=== PATIENT | male | born 1930 | race Caucasian/White ===

== ENCOUNTER 2016-03-23 05:51 | Observation (INO) | END 2016-03-23 19:15 | disposition home or self-care (01) | CPT/HCPCS: 36415; 80048; 80053; 83690; 83735; 84484; 85025; 87275; 87276; 93005; 93010; 96360; 96361; 99283; 99284; A9270; G0378 ==

== ENCOUNTER 2016-10-16 07:12 | Outpatient (CLI) | payer MEDICARE, OTHER ==
[2016-10-16 11:57] LABS: BASOPHILS # (AUTO) 0.1 10^3/uL (0.0-0.1); EOSINOPHILS # (AUTO) 0.5 10^3/uL (0.0-0.7); HCT - HEMATOCRIT 39.8 % (42.0-52.0); HGB - HEMOGLOBIN 13.6 g/dL (14.0-18.0); LYMPHOCYTES # (AUTO) 1.3 10^3/uL (1.5-3.5); LYMPHOCYTES % (AUTO) 25.7 %; MEAN CORPUSCULAR HEMOGLOBIN 31.1 pg (27.0-31.0); MEAN CORPUSCULAR HGB CONC 34.3 g/dL (32.0-36.0); MEAN CORPUSCULAR VOLUME 90.9 fL (80.0-94.0); MONOCYTES # (AUTO) 0.6 10^3/uL (0.0-1.0); MONOCYTES % (AUTO) 12.3 %; NEUTROPHILS # (AUTO) 2.5 10^3/uL (1.5-6.6); NUCLEATED RED BLOOD CELLS AUTO 0.1 /100WBC; RED BLOOD COUNT 4.38 10^6/uL (4.70-6.10); RED CELL DISTRIBUTION WIDTH 13.3 % (12.0-15.0); UNCORRECTED WHITE BLOOD COUNT 4.9 x10^3/uL; WHITE BLOOD COUNT 4.9 x10^3/uL (4.8-10.8)
[2016-10-16 12:19] LABS: ALBUMIN/GLOBULIN RATIO 1.2 (1.0-2.2); BILIRUBIN,TOTAL 0.5 mg/dL (0.2-1.0); BUN - BLOOD UREA NITROGEN 26 mg/dL (6-20); CALCIUM 9.3 mg/dL (8.5-10.3); CARBON DIOXIDE - CO2 25 mmol/L (21-32); CHLORIDE 104 mmol/L (101-111); CHOLESTEROL 187 mg/dL; GFR - MDRD 71 (>89); GLUCOSE 113 mg/dL (70-100); HDL CHOLESTEROL 63 mg/dL; LDL/HDL RATIO 1.6 (<3.6); POTASSIUM 3.6 mmol/L (3.5-5.0); SODIUM 138 mmol/L (135-145); TOTAL PROTEIN 7.7 g/dL (6.7-8.2); TRIGLYCERIDES 112 mg/dL; VLDL CHOLESTEROL 22 mg/dL
== END 2016-10-16 07:13 | disposition home or self-care (01) ==
LOC: LAB.F 07:12
PROVIDERS: ATTEND Nurse Practitioner Family
DX: I10 Essential (primary) hypertension (principal)
CPT/HCPCS: 36415; 80053; 80061; 85025

== ENCOUNTER 2017-01-12 07:08 | Outpatient (CLI) | payer MEDICARE, OTHER ==
[2017-01-12 14:53] LABS: CHOLESTEROL 513 mg/dL
[2017-01-12 14:54] LABS: CARBON DIOXIDE - CO2 24 mmol/L (21-32); CHLORIDE 104 mmol/L (101-111); POTASSIUM 3.6 mmol/L (3.5-5.0); SODIUM 142 mmol/L (135-145)
[2017-01-12 14:55] LABS: BILIRUBIN,TOTAL 0.7 mg/dL (0.2-1.0); BUN - BLOOD UREA NITROGEN 19 mg/dL (6-20); CALCIUM 8.8 mg/dL (8.5-10.3); GFR - MDRD 71 (>89); GLUCOSE 97 mg/dL (70-100)
[2017-01-12 14:56] LABS: TOTAL PROTEIN 6.8 g/dL (6.7-8.2)
[2017-01-12 14:57] LABS: ALBUMIN/GLOBULIN RATIO 1.3 (1.0-2.2); TRIGLYCERIDES > 2000 mg/dL
== END 2017-01-12 07:09 | disposition home or self-care (01) ==
LOC: LAB.F 07:08
PROVIDERS: ATTEND Nurse Practitioner Family
DX: E78.00 Pure hypercholesterolemia, unspecified (principal)
CPT/HCPCS: 36415; 80053; 80061

== ENCOUNTER 2017-02-24 07:17 | Outpatient (CLI) | payer MEDICARE, OTHER ==
[2017-02-24 11:23] LABS: ALBUMIN/GLOBULIN RATIO 1.2 (1.0-2.2); BILIRUBIN,TOTAL 0.6 mg/dL (0.2-1.0); BUN - BLOOD UREA NITROGEN 22 mg/dL (6-20); CALCIUM 9.3 mg/dL (8.5-10.3); CARBON DIOXIDE - CO2 27 mmol/L (21-32); CHLORIDE 105 mmol/L (101-111); CHOL/HDL RATIO 4.4 (<5.0); CHOLESTEROL 237 mg/dL; CREATININE 0.9 mg/dL (0.6-1.2); GFR - MDRD 80 (>89); GLUCOSE 107 mg/dL (70-100); HDL CHOLESTEROL 54 mg/dL; LDL/HDL RATIO 2.2 (<3.6); POTASSIUM 3.7 mmol/L (3.5-5.0); SODIUM 141 mmol/L (135-145); TOTAL PROTEIN 7.7 g/dL (6.7-8.2); TRIGLYCERIDES 324 mg/dL; VLDL CHOLESTEROL 65 mg/dL
== END 2017-02-24 07:18 | disposition home or self-care (01) ==
LOC: LAB.F 07:17
PROVIDERS: ATTEND Nurse Practitioner Family
DX: E78.1 Pure hyperglyceridemia (principal)
CPT/HCPCS: 36415; 80053; 80061

== ENCOUNTER 2017-08-14 07:16 | Outpatient (CLI) | payer MEDICARE, OTHER ==
[2017-08-14 12:33] LABS: ALBUMIN 4.2 g/dL (3.2-5.5); ALBUMIN/GLOBULIN RATIO 1.2 (1.0-2.2); ALKALINE PHOSPHATASE 52 IU/L (42-121); ALT ALANINE AMINOTRANSFERASE 20 IU/L (10-60); AST ASPARTATE AMINOTRANSFERASE 22 IU/L (10-42); BILIRUBIN,TOTAL 0.9 mg/dL (0.2-1.0); BUN - BLOOD UREA NITROGEN 25 mg/dL (6-20); CARBON DIOXIDE - CO2 26 mmol/L (21-32); CHLORIDE 104 mmol/L (101-111); CHOL/HDL RATIO 3.2 (<5.0); CHOLESTEROL 185 mg/dL; CREATININE 0.8 mg/dL (0.6-1.2); GFR - MDRD 92 (>89); GLUCOSE 98 mg/dL (70-100); HDL CHOLESTEROL 57 mg/dL; LDL CHOLESTEROL,CALCULATED 99 mg/dL; LDL/HDL RATIO 1.7 (<3.6); SODIUM 138 mmol/L (135-145); TOTAL PROTEIN 7.6 g/dL (6.7-8.2); VLDL CHOLESTEROL 29 mg/dL
== END 2017-08-14 07:17 | disposition home or self-care (01) ==
LOC: LAB.F 07:16
PROVIDERS: ATTEND Nurse Practitioner Family
DX: E78.1 Pure hyperglyceridemia (principal)
CPT/HCPCS: 36415; 80053; 80061; 83721

== ENCOUNTER 2018-04-12 07:13 | Outpatient (CLI) | payer MEDICARE, OTHER ==
[2018-04-12 13:21] LABS: ALBUMIN 4.2 g/dL (3.2-5.5); ALBUMIN/GLOBULIN RATIO 1.1 (1.0-2.2); ALKALINE PHOSPHATASE 56 IU/L (42-121); ALT ALANINE AMINOTRANSFERASE 28 IU/L (10-60); AST ASPARTATE AMINOTRANSFERASE 24 IU/L (10-42); BILIRUBIN,TOTAL 0.9 mg/dL (0.2-1.0); BUN - BLOOD UREA NITROGEN 27 mg/dL (6-20); CALCIUM 9.2 mg/dL (8.5-10.3); CARBON DIOXIDE - CO2 23 mmol/L (21-32); CHLORIDE 104 mmol/L (101-111); CHOL/HDL RATIO 3.7 (<5.0); CHOLESTEROL 190 mg/dL; CREATININE 0.9 mg/dL (0.6-1.2); GFR - MDRD 80 (>89); GLUCOSE 101 mg/dL (70-100); HDL CHOLESTEROL 52 mg/dL; LDL CHOLESTEROL,CALCULATED 103 mg/dL; SODIUM 139 mmol/L (135-145); TOTAL PROTEIN 8.1 g/dL (6.7-8.2); VLDL CHOLESTEROL 35 mg/dL
== END 2018-04-12 07:14 | disposition home or self-care (01) ==
LOC: LAB.F 07:13
PROVIDERS: ATTEND Nurse Practitioner Family
DX: I10 Essential (primary) hypertension (principal); E78.1 Pure hyperglyceridemia
CPT/HCPCS: 36415; 80053; 80061; 83721; 84443

== ENCOUNTER 2018-11-23 11:40 | Outpatient (CLI) | payer MEDICARE, OTHER ==
[2018-11-23 12:23] LABS: ALBUMIN 4.1 g/dL (3.2-5.5); CALCIUM 8.9 mg/dL (8.5-10.3); CREATININE 0.8 mg/dL (0.6-1.2); PHOSPHORUS 3.5 mg/dL (2.5-4.6)
== END 2018-11-23 11:41 | disposition home or self-care (01) ==
LOC: LAB 11:40
PROVIDERS: ATTEND Internal Medicine Cardiovascular Disease
DX: R06.09 Other forms of dyspnea (principal)
CPT/HCPCS: 36415; 80069

== ENCOUNTER 2019-05-04 07:14 | Outpatient (CLI) | payer MEDICARE, OTHER ==
[2019-05-04 12:20] LABS: BUN - BLOOD UREA NITROGEN 19 mg/dL (6-20); CARBON DIOXIDE - CO2 24 mmol/L (21-32); CHLORIDE 105 mmol/L (101-111); CHOL/HDL RATIO 3.5 (<5.0); CHOLESTEROL 213 mg/dL; CREATININE 0.9 mg/dL (0.6-1.2); GFR - MDRD 80 (>89); GLUCOSE 105 mg/dL (70-100); HDL CHOLESTEROL 61 mg/dL; LDL CHOLESTEROL,CALCULATED 92 mg/dL; LDL/HDL RATIO 1.5 (<3.6); SODIUM 139 mmol/L (135-145); VLDL CHOLESTEROL 60 mg/dL
== END 2019-05-04 07:15 | disposition home or self-care (01) ==
LOC: LAB.S 07:14
PROVIDERS: ATTEND Internal Medicine
DX: I10 Essential (primary) hypertension (principal); E78.5 Hyperlipidemia, unspecified
CPT/HCPCS: 36415; 80048; 80061; 83721

== ENCOUNTER 2020-01-26 16:46 | Outpatient (CLI) | payer MEDICARE, OTHER | END 2020-01-26 16:47 | disposition home or self-care (01) | LOC: COV 16:46 | PROVIDERS: ATTEND Family Medicine | DX: J02.9 Acute pharyngitis, unspecified (principal); Z20.828 Contact with and (suspected) exposure to other viral communicable diseases ==

== ENCOUNTER 2020-04-12 07:38 | Outpatient (CLI) | payer MEDICARE, OTHER ==
[2020-04-12 15:04] LABS: BASOPHILS % (AUTO) 0.6 %; EOSINOPHILS # (AUTO) 0.5 10^3/uL (0.0-0.7); EOSINOPHILS % (AUTO) 8.6 %; HGB - HEMOGLOBIN 13.3 g/dL (14.0-18.0); LYMPHOCYTES # (AUTO) 1.5 10^3/uL (1.5-3.5); MEAN CORPUSCULAR HEMOGLOBIN 30.7 pg (27.0-31.0); MEAN CORPUSCULAR HGB CONC 32.8 g/dL (32.0-36.0); MEAN CORPUSCULAR VOLUME 93.8 fL (80.0-94.0); MONOCYTES # (AUTO) 0.7 10^3/uL (0.0-1.0); MONOCYTES % (AUTO) 12.3 %; NEUTROPHILS # (AUTO) 2.7 10^3/uL (1.5-6.6); NEUTROPHILS % (AUTO) 50.1 %; PLT - PLATELET COUNT 194 10^3/uL (130-450); RED BLOOD COUNT 4.33 10^6/uL (4.70-6.10); RED CELL DISTRIBUTION WIDTH 12.3 % (12.0-15.0); WHITE BLOOD COUNT 5.4 x10^3/uL (4.8-10.8)
[2020-04-12 15:53] LABS: ALBUMIN/GLOBULIN RATIO 1.1 (1.0-2.2); ALKALINE PHOSPHATASE 66 IU/L (42-121); ALT ALANINE AMINOTRANSFERASE 17 IU/L (10-60); AST ASPARTATE AMINOTRANSFERASE 18 IU/L (10-42); BILIRUBIN,TOTAL 0.6 mg/dL (0.2-1.0); BUN - BLOOD UREA NITROGEN 21 mg/dL (6-20); CALCIUM 9.4 mg/dL (8.5-10.3); CARBON DIOXIDE - CO2 25 mmol/L (21-32); CHLORIDE 101 mmol/L (101-111); CHOL/HDL RATIO 3.1 (<5.0); CHOLESTEROL 187 mg/dL; CREATININE 0.9 mg/dL (0.6-1.2); GLUCOSE 104 mg/dL (70-100); HDL CHOLESTEROL 61 mg/dL; LDL CHOLESTEROL,CALCULATED 90 mg/dL; LDL/HDL RATIO 1.5 (<3.6); TOTAL PROTEIN 7.8 g/dL (6.7-8.2); VLDL CHOLESTEROL 36 mg/dL
== END 2020-04-12 07:39 | disposition home or self-care (01) ==
LOC: LAB.S 07:38
PROVIDERS: ATTEND Registered Nurse
DX: E78.5 Hyperlipidemia, unspecified (principal); N40.1 Benign prostatic hyperplasia with lower urinary tract symptoms; N13.8 Other obstructive and reflux uropathy; I10 Essential (primary) hypertension
CPT/HCPCS: 36415; 80053; 80061; 83721; 84443; 85025

== ENCOUNTER 2020-05-17 19:32 | Outpatient (CLI) | payer MEDICARE, OTHER | END 2020-05-17 19:33 | disposition home or self-care (01) | LOC: COV 19:32 | PROVIDERS: ATTEND Family Medicine | DX: R05 Cough (principal); Z20.822 Contact with and (suspected) exposure to COVID-19 ==

== ENCOUNTER 2020-05-31 08:00 | Outpatient (CLI) | payer MEDICARE, OTHER ==
--- NOTE | 2020-05-31 14:08 | XRAY Report ---
PROCEDURE: Chest 2 View X-Ray INDICATIONS: COUGH TECHNIQUE: 2 view(s) of the chest. COMPARISON: None. FINDINGS: Surgical changes and devices: Left shoulder arthroplasty. Lungs and pleura: No pleural effusions or pneumothorax. Moderate diffuse reticulonodular pulmonary o pacity is present. Mediastinum: Mediastinal contours are normal. Heart size is normal. Bones and chest wall: No suspicious bony abnormalities. Soft tissues appear unremarkable. IMPRESSION: Moderate atypical pneumonia. Reviewed by: Karen Núñez MD on 05/31/2020 2:06 PM PST Approved by: Karen Núñez MD on 05/31/2020 2:06 PM PST Station ID: [id number]
== END 2020-05-31 23:59 | disposition home or self-care (01) ==
LOC: DI.S 08:00
PROVIDERS: ATTEND Physician Assistant
DX: R05 Cough (principal); J18.9 Pneumonia, unspecified organism

== ENCOUNTER 2020-06-16 15:19 | Outpatient (CLI) | payer MEDICARE, OTHER ==
--- NOTE | 2020-06-16 16:09 | XRAY Report ---
PROCEDURE: Chest 2 View X-Ray INDICATIONS: COUGH TECHNIQUE: 2 view(s) of the chest. COMPARISON: Chest x-ray 05/31/2020 FINDINGS: Surgical changes and devices: Left shoulder arthroplasty. Lungs and pleura: No pleural effusions or pneumothorax. Previous appearance of diffuse reticular-nod ular opacities remain present relatively unchanged. No consolidations. Mediastinum: Mediastinal contours are normal. Heart size is normal. Bones and chest wall: No suspicious bony abnormalities. Soft tissues appear unremarkable. IMPRESSION: Persistent appearance of bilateral reticular nodular opacities suggestive of atypical pn eumonia. Overall, no significant interval change. Reviewed by: Mahsa Stevenson MD on 06/16/2020 4:08 PM PDT Approved by: Mahsa Stevenson MD on 06/16/2020 4:08 PM PDT Station ID: [id number]
== END 2020-06-16 23:59 | disposition home or self-care (01) ==
LOC: DI.S 15:19
PROVIDERS: ATTEND Physician Assistant
DX: J18.9 Pneumonia, unspecified organism (principal); R05 Cough

== ENCOUNTER 2020-06-20 14:46 | Emergency (ER) | payer MEDICARE, OTHER ==
--- NOTE | 2020-06-20 15:48 | ED Physician Documentation ---
PD HPI DYSPNEA - Stated complaint Stated Complaint: SOA, COUGH, ALLERGY TO MEDS - Chief complaint Chief Complaint: Resp - History obtained from History obtained from: Patient - Additional information Additional information: This 89-year-old gentleman has been dealing with "atypical pneumonia for the last 5 weeks. He has a persistent cough, shortness of breath with exertion but not at rest. He is using his 's oxygen which makes him feel better and says at some point he had a room air sat of 90%. He is been seen several times at the walk-in clinic and 2 x-rays were done showing atypical pneumonia. He is been on multiple antibiotics including azithromycin, doxycycline, and most like most recently moxifloxacin. He took 4 days of moxifloxacin but stopped last night because he had a very short syncopal episode without injury. Review of Systems Ten Systems: 10 systems reviewed and negative Constitutional: denies: Fever, Chills Cardiac: denies: Chest pain / pressure, Palpitations Respiratory: reports: Dyspnea, Cough PD PAST MEDICAL HISTORY - Past Medical History Past Medical History: Yes Cardiovascular: Hypertension, High cholesterol, Coronary artery disease Respiratory: None Neuro: None Endocrine/Autoimmune: None GI: None : Benign prostate hypertrophy HEENT: None Psych: None Musculoskeletal: None Derm: None - Past Surgical History Past Surgical History: Yes General: Colonoscopy Derm: Skin cancer surgery, Other - Present Medications Home Medications: Ambulatory Orders Medication Instructions Recorded Confirmed Cholestyramine/Aspartame 4 gm PO DAILY 01/25/13 03/23/16 [Prevalite Packet] Doxazosin [Cardura] 8 mg PO DAILY 01/25/13 03/23/16 Finasteride [Proscar] 5 mg PO DAILY 01/25/13 03/23/16 Hydrochlorothiazide 25 mg PO DAILY 01/25/13 03/23/16 gemfibroziL [Gemfibrozil] 600 mg PO BIDWM 01/25/13 03/23/16 Aspirin [Aspirin EC] 81 mg PO DAILY 03/23/16 03/23/16 Cholestyramine/Aspartame 8 gm PO QPM 03/23/16 03/23/16 [Prevalite Packet] Metoprolol Succinate [Toprol Xl] 100 mg PO DAILY 03/23/16 03/23/16 Niacin [Niacin ER] 500 mg PO BID 03/23/16 03/23/16 Amoxicillin 2 tab PO TID #60 cap 06/20/20 - Allergies Allergies/Adverse Reactions: Allergies Allergy/AdvReac Type Severity Reaction Status Date / Time ALMA Inhibitors Allergy Severe angioedema Verified 03/23/16 05:58 azithromycin Allergy Dizziness Verified 06/20/20 14:59 shellfish derived Allergy Anaphylaxis Verified 03/23/16 05:59 - Social History Does the pt smoke?: No Smoking Status: Never smoker Does the pt drink ETOH?: Yes Does the pt have substance abuse?: No - Immunizations Immunizations are current?: Yes - POLST Patient has POLST: No PD ED PE NORMAL - Vitals Vital signs reviewed: Yes - General General: Alert and oriented X 3, No acute distress - HEENT HEENT: PERRL, EOMI - Neck Neck: Supple, no meningeal sign, No bony TTP - Cardiac Cardiac: RRR, No murmur - Respiratory Respiratory: No respiratory distress, Clear bilaterally - Abdomen Abdomen: Normal bowel sounds, Soft, Non tender - Back Back: No CVA TTP, No spinal TTP - Derm Derm: Normal color, Warm and dry - Extremities Extremities: No edema, No calf tenderness / cord - Neuro Neuro: Alert and oriented X 3, Normal speech Results - Vitals Vitals: Vital Signs - 24 hr 06/20/20 06/20/20 06/20/20 14:59 15:07 17:07 Temperature 36.6 C 36.4 C L Heart Rate 96 76 74 Respiratory 24 16 16 Rate Blood Pressure 126/65 129/63 130/59 L O2 Saturation 93 92 94 Oxygen O2 Source Room air - Labs Labs: Laboratory Tests 06/20/20 06/20/20 06/20/20 16:00 16:00 16:12 WBC 16.8 H RBC 4.13 L Hgb 12.3 L Hct 36.5 L MCV 88.4 MCH 29.8 MCHC 33.7 RDW 12.0 Plt Count 314 MPV 10.5 Neut # (Auto) 14.1 H Lymph # (Auto) 1.0 L Tyrrell # (Auto) 1.4 H Eos # (Auto) 0.2 Baso # (Auto) 0.1 Absolute Nucleated RBC 0.00 Nucleated RBC % 0.0 Sodium 130 L Potassium 3.4 L Chloride 92 L Carbon Dioxide 25 Anion Gap 13.0 BUN 27 H Creatinine 1.0 Estimated GFR (MDRD) 71 L Glucose 121 H Calcium 9.3 Total Bilirubin 0.2 AST 26 ALT 46 Alkaline Phosphatase 72 Total Protein 7.6 Albumin 2.5 L Globulin 5.1 H Albumin/Globulin Ratio 0.5 L Nasal Adenovirus (PCR) NOT DETECTED Nasal B. parapertussis DNA (PCR) NOT DETECTED Nasal Coronavir 229E PCR NOT DETECTED Nasal Coronavir HKU1 PCR NOT DETECTED Nasal Coronavir NL63 PCR NOT DETECTED Nasal Coronavir OC43 PCR NOT DETECTED Nasal Enterovir/Rhinovir PCR NOT DETECTED Nasal Influenza B PCR NOT DETECTED Nasal Influenza A PCR NOT DETECTED Nasal Parainfluen 1 PCR NOT DETECTED Nasal Parainfluen 2 PCR NOT DETECTED Nasal Parainfluen 3 PCR NOT DETECTED Nasal Parainfluen 4 PCR NOT DETECTED Nasal RSV (PCR) NOT DETECTED Nasal B.pertussis DNA PCR NOT DETECTED Nasal C.pneumoniae (PCR) NOT DETECTED Ahmet Human Metapneumo PCR NOT DETECTED Nasal M.pneumoniae (PCR) NOT DETECTED Nasal SARS-CoV-2 (PCR) NOT DETECTED PD MEDICAL DECISION MAKING - ED course ED course: 89-year-old gentleman with persistent cough and shortness of breath for 5 weeks despite being on 3 antibiotics suggestive of a viral process. CT done today also ask is consistent with viral process. My suspicion is he probably had Covid and now has persistent infiltrates despite a negative test. That said he does have a leukocytosis and as such given his advanced age probably needs persistent antibiotics. He has an appoint with a [employer] ticket seller and he is given a copy of the CAT scan on a CD to aid in follow-up. Departure - Departure Disposition: 01 Home, Self Care Clinical Impression: Pneumonia Qualifiers: Pneumonia type: due to unspecified organism Laterality: bilateral Lung location: unspecified part of lung Qualified Code(s): J18.9 - Pneumonia, unspecified organism Condition: Good Record reviewed to determine appropriate education?: Yes Instructions: Pneumonia Dc Prescriptions: Amoxicillin 2 tab PO TID #60 cap Comments: The CAT scan today suggests a viral process, my suspicion is you probably had Covid and the infiltrates are persistent despite a negative test. That said your blood work is more suggestive of a bacterial infection and as such we are doing a new round of antibiotics. Make sure to keep the appointment for the [employer] seller that is scheduled and return if worse. Take the copy of the CAT scan on CD with you to that appointment.
[2020-06-20 16:06] LABS: BASOPHILS # (AUTO) 0.1 10^3/uL (0.0-0.1); BASOPHILS % (AUTO) 0.4 %; EOSINOPHILS # (AUTO) 0.2 10^3/uL (0.0-0.7); HCT - HEMATOCRIT 36.5 % (42.0-52.0); HGB - HEMOGLOBIN 12.3 g/dL (14.0-18.0); LYMPHOCYTES % (AUTO) 5.8 %; MEAN CORPUSCULAR HEMOGLOBIN 29.8 pg (27.0-31.0); MEAN CORPUSCULAR HGB CONC 33.7 g/dL (32.0-36.0); MEAN CORPUSCULAR VOLUME 88.4 fL (80.0-94.0); MEAN PLATELET VOLUME 10.5 fL (7.4-11.4); MONOCYTES # (AUTO) 1.4 10^3/uL (0.0-1.0); MONOCYTES % (AUTO) 8.3 %; NEUTROPHILS # (AUTO) 14.1 10^3/uL (1.5-6.6); PLT - PLATELET COUNT 314 10^3/uL (130-450); RED BLOOD COUNT 4.13 10^6/uL (4.70-6.10); WHITE BLOOD COUNT 16.8 x10^3/uL (4.8-10.8)
[2020-06-20 16:17] LABS: ALBUMIN 2.5 g/dL (3.2-5.5); ALBUMIN/GLOBULIN RATIO 0.5 (1.0-2.2); BILIRUBIN,TOTAL 0.2 mg/dL (0.2-1.0); CALCIUM 9.3 mg/dL (8.5-10.3); POTASSIUM 3.4 mmol/L (3.5-5.0); TOTAL PROTEIN 7.6 g/dL (6.7-8.2)
[2020-06-20] MEDS ORDERED: IOVERSOL 320 100 ML VIAL IVP ONE ×2 (16:33→21:16)
[2020-06-20 17:25] LABS: B. PARAPERTUSSIS- RESP PCR PAN NOT DETECTED; B. PERTUSSIS- RESP PCR PANEL NOT DETECTED; C. PNEUMONIAE- RESP PCR PANEL NOT DETECTED; CORONAVIRUS 229E-RESP PCR NOT DETECTED; CORONAVIRUS HKU1-RESP PCR NOT DETECTED; CORONAVIRUS NL63-RESP PCR NOT DETECTED; CORONAVIRUS OC43-RESP PCR NOT DETECTED; HUMAN METAPNEUMOVIRUS NOT DETECTED; INFLUENZA A- RESP PCR PANEL NOT DETECTED; INFLUENZA B - RESP PCR PANEL NOT DETECTED; M. PNEUMONIAE- RESP PCR PANEL NOT DETECTED; PARAINFLUENZA VIRUS 1 NOT DETECTED; PARAINFLUENZA VIRUS 2 NOT DETECTED; PARAINFLUENZA VIRUS 3 NOT DETECTED; PARAINFLUENZA VIRUS 4 NOT DETECTED; RHINOVIRUS/ENTEROVIRUS NOT DETECTED; RSV- RESP PCR PANEL NOT DETECTED; SARS-CoV-2 -RESP PCR PANEL NOT DETECTED
[2020-06-20 17:47] VITALS: BP 130/59
--- NOTE | 2020-06-20 17:51 | CT Report ---
PROCEDURE: CHEST W INDICATIONS: cough, abx xr CONTRAST: IV CONTRAST: Optiray 320 ml: 100 PO CONTRAST: *NO PO CONTRAST TECHNIQUE: After the administration of intravenous contrast, 5 mm thick sections acquired from the pulmonary api richy to the posterior costophrenic angles. 7 mm thick coronal MIP reformats were acquired. For radia tion dose reduction, the following was used: automated exposure control, adjustment of mA and/or kV according to patient size. COMPARISON: Chest film dated 05/31/2020, chest films dated 06/16/2020. FINDINGS: Image quality: Excellent. Lungs and pleura: Extensive patchy bilateral areas of groundglass opacity and interstitial infiltrate s and minimal patchy areas of airspace consolidation. These may potentially represent acute viral pneumonitis. No pleural effusions or pneumothorax. Centr al and peripheral airways are patent and normal in caliber. Mediastinum: Heart size is normal. No pericardial effusion. Coronary artery calcifications. Left at rium is somewhat enlarged. No mediastinal or hilar adenopathy by size criteria. Shotty mediastinal lymph nodes. Thoracic aorta and central pulmonary arteries are normal in size. Esophagus is normal i n caliber. No hiatal hernia. Bones and chest wall: No suspicious bony lesions. Total left shoulder arthroplasty. No vertebral bod y compression fractures. No axillary or supraclavicular adenopathy by size criteria. Thyroid gland is unremarkable as visualized. Abdomen: Gallstones in the gallbladder. No gallbladder wall thickening. Mild hepatic steatosis. IMPRESSION: Extensive patchy areas of groundglass opacity and interstitial infiltrates and focal areas of airspac e consolidation. Consider viral pneumonitis. Cholelithiasis. Mild hepatic steatosis. Reviewed by: Thiago Slater MD on 06/20/2020 5:50 PM PDT Approved by: Thiago Slater MD on 06/20/2020 5:50 PM PDT Station ID: [id number]
[2020-06-20] MEDS ORDERED: AMOXICILLIN 250 MG CAPSULE PO STA (18:01)
--- OUTSIDE RECORDS SUMMARY | 2020-06-27 00:08 | EXTERNAL MEDICAL SUMMARY RPT | Continuity of Care Document ---
:1930 Demographics Phone Unavailable Preferred Language Unknown Marital Status Unknown Caodaism Affiliation Unknown Race Unknown Ethnic Group Unknown Author Organization [facility] Address [address] [place] [address] Phone Social History date description facility [phone]
== END 2020-06-20 18:42 | disposition home or self-care (01) ==
LOC: ED 14:46
DX: J18.9 Pneumonia, unspecified organism (principal); Z20.822 Contact with and (suspected) exposure to COVID-19; I10 Essential (primary) hypertension; K80.20 Calculus of gallbladder without cholecystitis without obstruction; K76.0 Fatty (change of) liver, not elsewhere classified; Z79.82 Long term (current) use of aspirin
CPT/HCPCS: 36415; 71260; 80053; 85025; 87631; 99284; A9270; Q9967; 0202U

== ENCOUNTER 2021-04-29 08:02 | Outpatient (CLI) | payer MEDICARE, OTHER ==
[2021-04-29 08:31] LABS: BASOPHILS % (AUTO) 0.5 %; EOSINOPHILS # (AUTO) 0.4 10^3/uL (0.0-0.7); EOSINOPHILS % (AUTO) 6.6 %; HCT - HEMATOCRIT 40.1 % (42.0-52.0); HGB - HEMOGLOBIN 13.8 g/dL (14.0-18.0); LYMPHOCYTES # (AUTO) 1.7 10^3/uL (1.5-3.5); MEAN CORPUSCULAR HEMOGLOBIN 31.3 pg (27.0-31.0); MEAN CORPUSCULAR HGB CONC 34.4 g/dL (32.0-36.0); MEAN CORPUSCULAR VOLUME 90.9 fL (80.0-94.0); MEAN PLATELET VOLUME 10.7 fL (7.4-11.4); MONOCYTES # (AUTO) 0.8 10^3/uL (0.0-1.0); NEUTROPHILS # (AUTO) 3.3 10^3/uL (1.5-6.6); PLT - PLATELET COUNT 209 10^3/uL (130-450); RED BLOOD COUNT 4.41 10^6/uL (4.70-6.10); RED CELL DISTRIBUTION WIDTH 12.4 % (12.0-15.0); WHITE BLOOD COUNT 6.4 x10^3/uL (4.8-10.8)
[2021-04-29 08:51] LABS: ALBUMIN 3.8 g/dL (3.2-5.5); ALBUMIN/GLOBULIN RATIO 1.1 (1.0-2.2); ALKALINE PHOSPHATASE 50 IU/L (42-121); ALT ALANINE AMINOTRANSFERASE 15 IU/L (10-60); AST ASPARTATE AMINOTRANSFERASE 18 IU/L (10-42); BILIRUBIN,TOTAL 0.8 mg/dL (0.2-1.0); BUN - BLOOD UREA NITROGEN 26 mg/dL (6-20); CALCIUM 8.7 mg/dL (8.5-10.3); CARBON DIOXIDE - CO2 26 mmol/L (21-32); CHLORIDE 101 mmol/L (101-111); CHOLESTEROL 230 mg/dL; GFR - MDRD 70 (>89); GLUCOSE 107 mg/dL (70-100); HDL CHOLESTEROL 58 mg/dL; LDL CHOLESTEROL,CALCULATED 139 mg/dL; LDL/HDL RATIO 2.4 (<3.6); POTASSIUM 3.5 mmol/L (3.5-5.0); SODIUM 136 mmol/L (135-145); TOTAL PROTEIN 7.3 g/dL (6.7-8.2); TRIGLYCERIDES 164 mg/dL; VLDL CHOLESTEROL 33 mg/dL
[2021-04-29 08:53] LABS: THYROID STIMULATING HORMONE 3.2 uIU/mL (0.34-5.60)
== END 2021-04-29 08:03 | disposition home or self-care (01) ==
LOC: LAB 08:02
PROVIDERS: ATTEND Registered Nurse
DX: E78.5 Hyperlipidemia, unspecified (principal); N40.1 Benign prostatic hyperplasia with lower urinary tract symptoms; N13.8 Other obstructive and reflux uropathy; I10 Essential (primary) hypertension
CPT/HCPCS: 36415; 80053; 80061; 83721; 84443; 85025

== ENCOUNTER 2021-05-20 08:00 | Outpatient (CLI) | payer MEDICARE, OTHER | END 2021-05-20 23:59 | disposition home or self-care (01) | LOC: LAB.S 08:00 | PROVIDERS: ATTEND Registered Nurse | DX: R30.0 Dysuria (principal) | CPT/HCPCS: 87086 ==